=== PATIENT | female | born 1980 | race Caucasian/White ===

== ENCOUNTER 2017-07-16 06:49 | Inpatient (IN) | payer BC ==
[~2017-07-16] VITALS: Ht 154.9 cm; Wt 92.5 kg
[2017-07-17 06:06] LABS: HEMOGLOBIN 9.3 gm/dl (12.3-15.3)
[2017-07-18] MEDS ORDERED: COLACE 100MG C100 MG PO (11:45)
== END 2017-07-18 12:32 | disposition home or self-care (01) | DRG 766 ==
LOC: OB 06:49
PROVIDERS: ADMIT Obstetrics & Gynecology
PROC: 3E0234Z Introduction of Serum, Toxoid and Vaccine into Muscle, Percutaneous Approach (ICD-10-PCS; 2017-07-16)
PROC: 10D00Z1 Extraction of Products of Conception, Low, Open Approach (ICD-10-PCS; principal; 2017-07-16 09:00)
PROC: 3E0234Z Introduction of Serum, Toxoid and Vaccine into Muscle, Percutaneous Approach (ICD-10-PCS; 2017-07-17)
DX: O32.1XX0 Maternal care for breech presentation, not applicable or unspecified (principal); O34.211 Maternal care for low transverse scar from previous cesarean delivery; N85.8 Other specified noninflammatory disorders of uterus; Z3A.39 39 weeks gestation of pregnancy; Z37.0 Single live birth; O69.81X0 Labor and delivery complicated by cord around neck, without compression, not applicable or unspecified; O99.280 Endocrine, nutritional and metabolic diseases complicating pregnancy, unspecified trimester; E07.9 Disorder of thyroid, unspecified; O09.529 Supervision of elderly multigravida, unspecified trimester; O99.019 Anemia complicating pregnancy, unspecified trimester; D64.9 Anemia, unspecified; Z23 Encounter for immunization
CPT/HCPCS: 36415; 82800; 85014; 85018; 90715; C9113; J0690; J2405; J2550; J2590; J2765; J3430; J7050; J7120; Q2039

== ENCOUNTER → 2020-12-21 | Outpatient (CLI) | payer OTHER ==
[~2020-12-21] MED LIST: COLACE 100MG C100 MG PO
== END ==
LOC: EMI 12-20 09:00
DX: G35 Multiple sclerosis (principal); M47.812 Spondylosis without myelopathy or radiculopathy, cervical region
CPT/HCPCS: 70553; 72156; A9577